=== PATIENT | male | born 1965 ===

== ENCOUNTER → 2019-07-23 | Outpatient (CLI) | payer BC ==
--- NOTE | 2019-07-23 13:36 | RADIOLOGY REPORT (SQ) ---
EXAM DESCRIPTION: MRI RT UPPER JOINT WITHOUT COMPLETED DATE/TIME: 07/23/2019 12:38 pm REASON FOR STUDY: M25.511 PAIN IN RIGHT SHOULDER M25.511 PAIN IN RIGHT SHOULDER COMPARISON: None. TECHNIQUE: Right shoulder images acquired and stored on PACS. Multiplanar imaging to include fat sen sitive sequences such as T1, water sensitive sequences such as FST2/STIR, cartilage sensitive sequenc es such as FSPD/gradient-echo sequences. LIMITATIONS: Motion. FINDINGS: BONE MARROW AND CORTEX: Subchondral cyst formation lateral humeral head. JOINT OR BURSAL EFFUSION: No significant joint or bursal fluid. No suggestion of loose bodies. GLENO-HUMERAL ARTICULATION: Cartilage loss, osteophyte formation humeral head. Subchondral cyst form ation in the glenoid. ACROMION AND AC JOINT: Type 2 acromion. Moderate AC joint arthropathy. ROTATOR CUFF AND INTERVAL: Partial-thickness articular surface tear supraspinatus. Partial thickness articular surface tear of the infraspinatus. No rotator interval tear. No rotator interval thickening to suggest adhesive capsulitis. LABRUM AND BICEPS LABRAL COMPLEX: Fraying of the superior labrum. Distal biceps intact. REMAINDER OF LABRUM AND IGHL : Intact. PERIARTICULAR AND ADJACENT SOFT TISSUES: No masses or abnormal nodes. OTHER: No other significant finding. IMPRESSION: 1. Partial-thickness tears of the supraspinatus and infraspinatus. 2. Fairly advanced glenohumeral joint arthropathy. TECHNICAL DOCUMENTATION: JOB ID: [id number] [employer]- All Rights Reserved Reading location - IP/workstation name: [email or web address]
== END ==
LOC: RAD 11:35
PROVIDERS: ATTEND Physician Assistant
DX: M75.111 Incomplete rotator cuff tear or rupture of right shoulder, not specified as traumatic (principal); M12.811 Other specific arthropathies, not elsewhere classified, right shoulder; M25.511 Pain in right shoulder

== ENCOUNTER → 2020-03-17 | Outpatient (CLI) | payer BC ==
--- NOTE | 2020-03-17 16:40 | RADIOLOGY REPORT (SQ) ---
EXAM DESCRIPTION: MRI RT UPPER JOINT WITHOUT IMAGES COMPLETED DATE/TIME: 03/17/2020 4:18 pm REASON FOR STUDY: M25.511 PAIN IN RIGHT SHOULDER M25.511 PAIN IN RIGHT SHOULDER COMPARISON: MRI right shoulder 07/23/2019 TECHNIQUE: Non arthrogram non contrasted MRI right shoulder images acquired and stored on PACS. Mult iplanar imaging to include fat sensitive sequences such as T1, water sensitive sequences such as FST2 /STIR, cartilage sensitive sequences such as FSPD/gradient-echo sequences. LIMITATIONS: None. FINDINGS: BONE MARROW AND CORTEX: Small subcortical cyst right humeral head greater tuberosity uncha nged. JOINT OR BURSAL EFFUSION: Small amount of fluid in the subacromial/subdeltoid bursa. Physiologic gle nohumeral joint fluid GLENO-HUMERAL ARTICULATION: Normal articulation. No subluxation. No cystic change. No osteophytes or cartilage loss. ACROMION AND AC JOINT: Type 2 acromion No down-sloping or distal spur. Sub-acromial space maintaine d. No significant AC joint arthropathy. ROTATOR CUFF AND INTERVAL: Small full-thickness tear anterior edge distal supraspinatus tendon, best shown on coronal image 11 and sagittal image 4. Remainder of the supraspinatus tendon and anterior h dee infraspinatus tendon is thickened and high signal from tendinopathy. Mild tendinopathy distal bernard bscapularis tendon. No rotator interval tear. No rotator interval thickening to suggest adhesive capsulitis. LABRUM AND BICEPS LABRAL COMPLEX: Intra-articular long head biceps tendon is thick and high in sign al from tendinopathy, best shown on sagittal image 80, coronal image 13, axial image 9. There is a d iffuse superior labral tear without paralabral cyst, best shown on sagittal image 13, axial image 8, coronal image 11. REMAINDER OF LABRUM AND IGHL : No gross tear or paralabral cyst formation. Labral evaluation is less than optimal without joint distention. No thickening of IGHL to suggest adhesive capsulitis. PERIARTICULAR AND ADJACENT SOFT TISSUES: No masses or abnormal nodes. OTHER: No other significant finding. IMPRESSION: Small full-thickness tear anterior edge supraspinatus tendon Supra and infraspinatus tendinopathy Intra-articular long head biceps tendinopathy Small superior labral tear TECHNICAL DOCUMENTATION: JOB ID: [id number] [employer]- All Rights Reserved Reading location - IP/workstation name: [email or web address]
== END ==
LOC: RAD 15:16
PROVIDERS: ATTEND Physician Assistant
DX: M75.121 Complete rotator cuff tear or rupture of right shoulder, not specified as traumatic (principal); M25.511 Pain in right shoulder